=== PATIENT | male | born 1990 | race Caucasian/White ===

== ENCOUNTER 2016-05-23 13:04 | Emergency (ER) | payer OTHER ==
[~2016-05-23] VITALS: Ht 177.8 cm; Wt 146.5 kg
[~2016-05-23 13:04] MED LIST: ALBUTEROL1.25 MG/1 INH/SOL; ALBUTEROL2.5 MG/3 M INH/SOL; CIPRODEX 0.3%-7.5 ML OT; CLEOCIN HCL300 MG PO; FLOVENT HFA10.6 GM INH; GUAIFENESIN-COD10 ML PO; IPRAT-ALBUT 0.5-3 ML NEB; LOMOTIL 0.025 M1 TAB PO; MEDROL4 M2 PO; PERCOCET 325 MG1 TA2 PO; PREDNISONE20 M1 PO; PROAIR HFA8.5 GM INH; TESSALON PERLE100 M1 PO; VIBRAMYCIN100 MG PO; ZITHROMAX500 M2 PO; ZOFRAN ODT4 MG PO
[2016-05-23 14:17] LABS: ABSOLUTE BASOPHIL COUNT 0 /CUMM (0.0-0.2); ABSOLUTE EOSINOPHIL COUNT 0 /CUMM (0.0-0.7); ABSOLUTE GRANULOCYTE CT 6.6 /CUMM (1.4-6.5); ABSOLUTE LYMPH COUNT 0.5 /CUMM (1.2-3.4); BASOPHIL % 0 % (0.0-2.0); EOSINOPHIL % 0.2 % (0-5); GRANULOCYTE % 81.5 % (42.2-75.2); HEMATOCRIT 43.1 % (42-52); MEAN CORPUSCULAR HGB 28.2 PG (27.0-31.0); MEAN CORPUSCULAR HGB CONC 33.8 G/DL (33.0-37.0); MEAN CORPUSCULAR VOLUME 83.3 FL (80.0-94.0); MEAN PLATELET VOLUME 8.1 FL (7.4-10.4); PLATELET COUNT 216 /CUMM (130-400); RBC DISTRIBUTION WIDTH 13.6 % (11.5-14.5); RED BLOOD CELL CT 5.17 /CUMM (4.70-6.10); WHITE BLOOD CELL COUNT 8.1 /CUMM (4.8-10.8)
--- NOTE | 2016-05-23 14:35 | ED GENERAL ADULT ---
History of Present Illness General Chief Complaint: General Adult Stated Complaint: FLU S/S X 1 DAY Source: patient, family Exam Limitations: no limitations Vital Signs & Intake/Output Vital Signs & Intake/Output Vital Signs Date Time Temp Pulse Resp B/P Pulse O2 O2 Flow FiO2 Ox Delivery Rate 05/23 1530 100.5 100 20 127/65 96 Room Air 05/23 1405 97 05/23 1344 95 Room Air 05/23 1311 99.5 116 20 117/68 95 Room Air Allergies Coded Allergies: NO KNOWN ALLERGIES (04/08/14) Reconcile Medications Albuterol Sulfate (Proair Hfa) 8.5 GM HFA.AER.AD 2 PUF INH Q4-6 PRN PRN WHEEZING Albuterol Sulfate 1.25 MG/3 ML VIAL.NEB 1 Vial INH/CITLALI Q4-6 PRN WHEEZING Albuterol Sulfate 0.63 MG/3 ML VIAL.NEB 1 Vial INH/CITLALI 4 TIMES/DAY WHEEZING Albuterol Sulfate (Proair Hfa) 90 MCG HFA.AER.AD 2 PUF INH Q4-6 PRN PRN WHEEZING/ASTHMA Methylprednisolone. (Medrol) 4 MG TAB.DS.PK 1 DP PO AD BRONCHITIS 6 on day 1 then reduce by one tablet daily until gone Robitussin AC (Guaifenesin-Codeine Syrup) 200 MG-20 MG/10 ML LIQUID 10 ML PO TID PRN COUGH Triage Note: PT C/O CHILLS, BODYACHES, VOMITING, FREQUENT URINATION, SOB SINCE LAST NIGHT Triage Nurses Notes Reviewed? yes HPI: 25 year old man with multiple ER evaluations in recent time seen for evaluation of diffuse muscle aches/pains, nausea, vomiting, wheezing, shortness of breath with bloody sputum production, chills, and frequent painful urination. Patient awoke yesterday morning feeling mild diffuse muscle aches and went about his day. He reports by the midafternoon he returned home from the Gym and felt nauseated with multiple episodes of bilious vomiting. He reports persistence of these symptoms throughout the night with episodes of frequent painful urination. Otherwise he denies any headache, fever, chest pain, palpitations, numbness/ tingling. (ASHLEY BARNETT,JOSE ARMANDO) Past History Travel History Traveled to [place] past [place] day No Medical History Any Pertinent Medical History? 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 No (JOSE ARMANDO RAMIREZ MD) Review of Systems Review of Systems Constitutional: Reports: see HPI. (JOSE ARMANDO RAMIREZ MD) Physical Exam Physical Exam General Appearance: well developed/nourished, alert, awake, mild distress, obese Comments: General - well developed, well nourished young obese man in mild distress HEENT - NCAT, PERRL, EOMI, anicteric sclera, dry mucuous membranes CVS - S1, S2 w/o m/g/r Resp - Audible productive cough, mild wheezing in right lung yao, no crackles , no accessory muscle use GI - Soft, nontender, nondistended, bowel sounds intact Neuro - Awake and Alert, CN II - XII grossly intact Ext - normal pulses, no cyanosis/clubbing/edema Core Measures ACS in differential dx? No CVA/TIA Diagnosis: No Severe Sepsis Present: No Septic Shock Present: No (JOSE ARMANDO RAMIREZ MD) Progress Differential Diagnoses I considered the following diagnoses in my evaluation of the patient: acute bronchitits, influenza, pneumonia Plan of Care: Orders Procedure Date/time Status URINALYSIS 05/23 1355 Active COMPREHENSIVE METABOLIC PANEL 05/23 1355 Complete CBC WITHOUT DIFFERENTIAL 05/23 1355 Complete RAPID VIRAL INFLUENZA A 05/23 1318 Complete Laboratory Tests 05/23/16 1407: Anion Gap 12, Estimated GFR > 60, BUN/Creatinine Ratio 15.0, Glucose 96, Calcium 9.4, Total Bilirubin 0.6, AST 37, ALT 50, Alkaline Phosphatase 62, Total Protein 6.8, Albumin 4.4, Globulin 2.4, Albumin/Globulin Ratio 1.8, CBC w Diff NO MAN DIFF REQ, RBC 5.17, MCV 83.3, MCH 28.2, RDW 13.6, MPV 8.1, Gran % 81.5 H, Lymphocytes % 6.3 L, Monocytes % 12.0 H, Eosinophils % 0.2, Basophils % 0 L, Absolute Granulocytes 6.6 H, Absolute Lymphocytes 0.5 L, Absolute Monocytes 1.0 H, Absolute Eosinophils 0, Absolute Basophils 0, PUBS MCHC 33.8 Microbiology 05/23 1337 NASOPHARYN: Influenza Virus A & B Rapid Smear - COMP Initial ED EKG: none Comments: Given patient's history of present illness his symptomology is 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 Vital signs on initial evaluation demonstrated tachycardia, patient is afebrile. Physical examination did demonstrate a moderately uncomfortable young man with a normal cardiac examination, diffuse wheezing with an audible productive cough, and dry mucous membranes. Complete blood count, comprehensive metabolic panel are within normal limits and did not demonstrate leukocytosis. Chest x-ray was suggestive of reactive airway disease or bronchitis without any evidence of pneumonia. Rapid flu was negative. Urinalysis Patient most likely has an acute viral bronchitis given his lack of leukocytosis and lack of a temperature. He is to be discharged to home with an albuterol inhaler, Medrol dose pack, and nebulizer vials with instruction to follow-up with his primary care provider after discharge for further evaluation.. (JOSE ARMANDO RAMIREZ MD) Departure Departure Disposition: HOME OR SELF CARE Condition: Stable Clinical Impression Primary Impression: Acute viral bronchitis Referrals: KIKE BARNETT,VINAY Gutierrez (PCP/Family) Additional Instructions: Take the Medrol Dosepak, albuterol inhaler, and albuterol nebulizing treatments as directed. Follow-up with your primary care provider after discharge. Call 911 or return to the ED should your clinical condition worsen. Departure Forms: Customer Survey General Discharge Information Prescriptions: Current Visit Scripts Methylprednisolone. (Medrol) 1 DP PO AD #1 DP 6 on day 1 then reduce by one tablet daily until gone Albuterol Sulfate 1 Vial INH/CITLALI 4 TIMES/DAY #150 ML Albuterol Sulfate (Proair Hfa) 2 PUF INH Q4-6 PRN PRN WHEEZING/ASTHMA #1 INHAL (JOSE ARMANDO RAMIREZ MD) Resident Co-Sign Statement Statement: ED Attending supervision documentation- [x] I saw and evaluated the patient. I have also reviewed all the pertinent lab results and diagnostic results. I agree with the findings and the plan of care as documented in the Resident's documentation. [] I have reviewed the ED Record and agree with the Resident's documentation. [] Additions or exceptions (if any) to the Resident's note and plan are summarized below: [] (GINA BARNETT,LULU Low) Critical Care Note Critical Care Note Critical Care Time: non-applicable (ASHLEY BARNETT,JOSE ARMANDO)
--- NOTE | 2016-05-23 14:48 | RADIOLOGY REPORT ---
EXAMINATION: XR CHEST CLINICAL INFORMATION: Shortness of breath. Wheezing. Presumptive diagnosis of URI. Evaluate for pneumonia. COMPARISON: Chest x-ray dated 11/07/2015 and 12/18/2011. TECHNIQUE: 2 views of the chest were obtained on 3 films. FINDINGS: The cardiomediastinal silhouette is within normal limits in size. Lungs bilaterally are symmetrically expanded and minimal thickening of the central airways. No focal consolidation, effusion or pneumothorax is seen. Bony structures are unremarkable. IMPRESSION: Findings suggestive of reactive airways disease or bronchitis. No evidence of pneumonia.
[2016-05-23] MEDS ORDERED: ALBUTEROL0.63 MG/1 INH/SOL (15:11)
[2016-05-23] MEDS ORDERED: PROAIR HFA8.5 GM INH (15:11)
[2016-05-23] MEDS ORDERED: MEDROL4 M2 PO (15:11)
[2016-05-23 15:30] VITALS: BP 127/65
[2016-05-23] MEDS ORDERED: GUAIFENESIN-CO118 ML PO (16:12)
== END 2016-05-23 16:18 ==
LOC: ERH 13:04
PROVIDERS: Internal Medicine Interventional Cardiology
DX: J20.8 Acute bronchitis due to other specified organisms (principal); Z72.0 Tobacco use
CPT/HCPCS: 1263; 81001; 87804; 87804-59; 96374; J2405

== ENCOUNTER 2016-06-01 01:43 | Emergency (ER) | payer OTHER ==
[~2016-06-01] VITALS: Ht 177.8 cm; Wt 108.9 kg
[~2016-06-01 01:43] MED LIST changes: +ALBUTEROL0.63 MG/1 INH/SOL; +GUAIFENESIN-CO118 ML PO
--- NOTE | 2016-06-01 01:54 | ED DYSPNEA/ASTHMA COMPLAINT ---
History of Present Illness General Chief Complaint: Upper Respiratory Sx/Fever Stated Complaint: COUGH,DIFF BREATHING Source: patient Exam Limitations: no limitations Vital Signs & Intake/Output Vital Signs & Intake/Output Vital Signs Date Time Temp Pulse Resp B/P Pulse O2 O2 Flow FiO2 Ox Delivery Rate 06/01 0206 95 Room Air 06/01 0205 97.1 103 22 131/77 95 Room Air Allergies Coded Allergies: NO KNOWN ALLERGIES (04/08/14) Reconcile Medications Albuterol Sulfate (Ventolin Hfa) 90 MCG HFA.AER.AD 2 PUF INH Q4-6 PRN PRN wheeze Albuterol Sulfate 1.25 MG/3 ML VIAL.NEB 1 Vial INH/CITLALI Q4-6 PRN WHEEZE Albuterol Sulfate (Proair Hfa) 8.5 GM HFA.AER.AD 2 PUF INH Q4-6 PRN PRN WHEEZING Albuterol Sulfate 1.25 MG/3 ML VIAL.NEB 1 Vial INH/CITLALI Q4-6 PRN WHEEZING Albuterol Sulfate 0.63 MG/3 ML VIAL.NEB 1 Vial INH/CITLALI 4 TIMES/DAY WHEEZING Albuterol Sulfate (Proair Hfa) 90 MCG HFA.AER.AD 2 PUF INH Q4-6 PRN PRN WHEEZING/ASTHMA Amoxicillin/Potassium Clav (Augmentin 875-125 Tablet) 875 MG-125 MG TABLET 1 TAB PO BID bronchitis Guaifenesin/Codeine Phosphate (Guaifenesin-Codeine Syrup) 100 MG-10 MG/5 ML LIQUID 5 ML PO Q6 COUGH Methylprednisolone. (Medrol) 4 MG TAB.DS.PK 1 DP PO AD wheezing 6 on day 1 then reduce by one tablet daily until gone Methylprednisolone. (Medrol) 4 MG TAB.DS.PK 1 DP PO AD BRONCHITIS 6 on day 1 then reduce by one tablet daily until gone Robitussin AC (Guaifenesin-Codeine Syrup) 200 MG-20 MG/10 ML LIQUID 10 ML PO TID PRN COUGH Triage Nurses Notes Reviewed? yes Onset: Gradual Duration: day(s):, waxing and waning Timing: recent history Severity: mild, moderate Activities at Onset: none Prior Episodes/Possible Cause: occasional episodes Modifying Factors: Improves With: rest. Associated Symptoms: cough, wheezing HPI: 25 yo gentleman presents with cough, productive of phlegm, and wheezing for the past 10 days. He notes that he completed a course of steroids, "went through the whole body of nebulizer medicine... and I'm still coughing... Now I have phlegm coming up." He notes no fever, chills, chest pain. He notes that he hasn't smoked cigarettes since getting sick. He is otherwise well. Past History Travel History Traveled to [place] past [place] day No Medical History Any Pertinent Medical History? 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 No Review of Systems Review of Systems Constitutional: Reports: no symptoms. EENTM: Reports: no symptoms. Respiratory: Reports: no symptoms. Cardiovascular: Reports: no symptoms. GI: Reports: no symptoms. Genitourinary: Reports: no symptoms. Musculoskeletal: Reports: no symptoms. Skin: Reports: no symptoms. Neurological/Psychological: Reports: no symptoms. Hematologic/Endocrine: Reports: no symptoms. Immunologic/Allergic: Reports: no symptoms. All Other Systems: Reviewed and Negative Physical Exam Physical Exam General Appearance: well developed/nourished, mild distress Head: atraumatic, normal appearance Eyes: Bilateral: normal appearance. Ears, Nose, Throat: normal pharynx Neck: normal inspection Respiratory: rhonchi, wheezing Cardiovascular: regular rate/rhythm Gastrointestinal: normal bowel sounds, soft, non-tender, no organomegaly Extremities: normal inspection Neurologic/Psych: no motor/sensory deficits, awake, alert, oriented x 3 Skin: intact, normal color, warm/dry Core Measures ACS in differential dx? No Severe Sepsis Present: No Septic Shock Present: No Progress Differential Diagnosis: asthma, bronchitis Plan of Care: scott davis Initial ED EKG: none Departure Departure Disposition: HOME OR SELF CARE Condition: Stable Clinical Impression Primary Impression: Bronchitis Referrals: UNKNOWN (PCP/Family) Departure Forms: Customer Survey General Discharge Information Prescriptions: Current Visit Scripts Methylprednisolone. (Medrol) 1 DP PO AD #1 DP 6 on day 1 then reduce by one tablet daily until gone Albuterol Sulfate (Ventolin Hfa) 2 PUF INH Q4-6 PRN PRN wheeze #1 INHAL Albuterol Sulfate 1 Vial INH/CITLALI Q4-6 PRN WHEEZE #1 BOX Amoxicillin/Potassium Clav (Augmentin 875-125 Tablet) 1 TAB PO BID #20 TAB Comments pt feels better after duo neb... abx/steroids/albuterol prescribed. close follow up encouraged. Critical Care Note Critical Care Note Critical Care Time: non-applicable
[2016-06-01 02:05] VITALS: BP 131/77
[2016-06-01] MEDS ORDERED: MEDROL4 M2 PO (02:19)
[2016-06-01] MEDS ORDERED: AUGMENTIN 875-1 EACH PO (02:19)
[2016-06-01] MEDS ORDERED: ALBUTEROL1.25 MG/1 INH/SOL (02:19)
[2016-06-01] MEDS ORDERED: VENTOLIN HFA18 GM INH (02:19)
== END 2016-06-01 02:59 ==
LOC: ERH 01:43
DX: J40 Bronchitis, not specified as acute or chronic (principal); Z72.0 Tobacco use
CPT/HCPCS: 1263; J1100; J3490

== ENCOUNTER 2016-06-22 12:34 | Emergency (ER) | payer OTHER ==
[~2016-06-22] VITALS: Ht 177.8 cm; Wt 146.5 kg
[~2016-06-22 12:34] MED LIST changes: +AUGMENTIN 875-1 EACH PO; +VENTOLIN HFA18 GM INH
[2016-06-22 12:46] VITALS: BP 136/77
--- NOTE | 2016-06-22 13:18 | ED INFLUENZA/URI COMPLAINT ---
History of Present Illness General Chief Complaint: General Adult Stated Complaint: "I THINK I HAVE THE FLU" Source: patient, old records Exam Limitations: no limitations Vital Signs & Intake/Output Vital Signs & Intake/Output Vital Signs Date Time Temp Pulse Resp B/P Pulse O2 O2 Flow FiO2 Ox Delivery Rate 06/22 1246 99.4 111 18 136/77 96 Room Air Allergies Coded Allergies: NO KNOWN ALLERGIES (04/08/14) Reconcile Medications Albuterol Sulfate (Ventolin Hfa) 90 MCG HFA.AER.AD 2 PUF INH Q4-6 PRN PRN wheeze Albuterol Sulfate 1.25 MG/3 ML VIAL.NEB 1 Vial INH/CITLALI Q4-6 PRN WHEEZE Albuterol Sulfate (Proair Hfa) 8.5 GM HFA.AER.AD 2 PUF INH Q4-6 PRN PRN WHEEZING Albuterol Sulfate 2.5 MG/3 ML (0.083 %) VIAL.NEB 1 Vial INH/CITLALI Q4P PRN wheezing Albuterol Sulfate 1.25 MG/3 ML VIAL.NEB 1 Vial INH/CITLALI Q4-6 PRN WHEEZING Albuterol Sulfate 0.63 MG/3 ML VIAL.NEB 1 Vial INH/CITLALI 4 TIMES/DAY WHEEZING Albuterol Sulfate (Proair Hfa) 90 MCG HFA.AER.AD 2 PUF INH Q4-6 PRN PRN WHEEZING/ASTHMA Amoxicillin/Potassium Clav (Augmentin 875-125 Tablet) 875 MG-125 MG TABLET 1 TAB PO BID bronchitis Amoxicillin/Potassium Clav (Augmentin 875-125 Tablet) 875 MG-125 MG TABLET 1 TAB PO BID strep Guaifenesin/Codeine Phosphate (Guaifenesin-Codeine Syrup) 100 MG-10 MG/5 ML LIQUID 5 ML PO Q6 COUGH Methylprednisolone. (Medrol) 4 MG TAB.DS.PK 1 DP PO AD wheezing 6 on day 1 then reduce by one tablet daily until gone Methylprednisolone. (Medrol) 4 MG TAB.DS.PK 1 DP PO AD strep 6 on day 1 then reduce by one tablet daily until gone Methylprednisolone. (Medrol) 4 MG TAB.DS.PK 1 DP PO AD BRONCHITIS 6 on day 1 then reduce by one tablet daily until gone Robitussin AC (Guaifenesin-Codeine Syrup) 200 MG-20 MG/10 ML LIQUID 10 ML PO TID PRN COUGH Triage Note: 25 Y/O MALE C/O SORE THROAT AND BODY ACHES SINCE LAST NIGHT. TOOK IBUPROPHEN AROUND 0400 WITH NO RELIEF. QUICK STREP AND FLU SWABS SENT TO LAB. TEMP 99.4 Triage Nurses Notes Reviewed? yes Onset: Abrupt Duration: day(s): (1), constant Timing: recent history Severity: moderate Severity Numbers: 7 Prior Episodes/Possible Cause: occassional episodes No Modifying Factors: none Associated Symptoms: muscle aches, CHILLS, EAR PAIN HPI: 25-year-old male presents emergency room complaining of sore throat general is body aches chills and bilateral ear pain since last night. He took Motrin at 4: 00 this morning with no improvement. He denies any sick contacts chest pain shortness of breath. No abdominal pain nausea vomiting or diarrhea. No recent travel. There are no modifying factors or associated symptoms pain is aching and throbbing worse with swallowing. No recent dental work. (CHANDANA ROSSI) Past History Travel History Traveled to [place] past [place] day No Medical History Any Pertinent Medical History? 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 No (CHANDANA ROSSI) Review of Systems Review of Systems Constitutional: Reports: see HPI. All Other Systems: Reviewed and Negative Comments Review of systems: See HPI, All other systems negative. Constitutional, chills no fever, no malaise HEENT: No visual changes sore throat no congestion Cardiovascular: No chest pain , no palpitation Skin, no jaundice no rashes, no change in skin Respiratory: No dyspnea no cough no sputum GI: No nausea no vomiting, no diarrhea : No dysuria Muscle skeletal: No joint pain, no back pain, no neck pain, Neurologic: No numbness no headache Psych: No stress Heme/endocrine: No bruising no bleeding Immunology: No lymphadenopathy, (CHANDANA ROSSI) Physical Exam Physical Exam General Appearance: well developed/nourished, no apparent distress, alert, awake Ears, Nose, Throat: hearing grossly normal, Tympanic normal Comments: Well-developed well-nourished patient in no apparent distress. Head/Face: Atraumatic, no maxillary/frontal sinus tenderness, no facial swelling Eyes: PERRL, EOMI, no conjunctival injection. No nystagmus Ear:External auditory canal and Tympanic membranes clear, no erythema, no FB. Nose: atraumatic.Normal inspection: No bleeding, no septal hematoma Throat: Moist mucous membranes.pharynx is erythematous, tonsillar exudate no trismus no uvula displacement no stridor/drooling or assymetry. No swelling or edema. Neck: Supple, ANTERIOR lymphadenopathy, FROM Back: FROM, Nontender Cardiovascular: Regular rate and rhythms no murmurs rubs or gallops, Respiratory: No respiratory distress. Patient speaking in full complete sentences. Breath sounds clear to auscultation bilaterally: NO W/R/R Extremities: full range of motion Neuro: Alert and oriented x3 Skin: Warm & dry;No appreciable rash on exposed skin Psych: Mood affect normal, normal memory normal judgment. Core Measures Severe Sepsis Present: No Septic Shock Present: No (CHANDANA ROSSI) Progress Differential Diagnosis: influenza, otitis, pneumonia, pharyngitis, sinusitis, mono Plan of Care: Orders Procedure Date/time Status THROAT CULTURE W/QUICK STREP 06/22 1245 Complete RAPID VIRAL INFLUENZA A 06/22 1243 Complete Microbiology 06/22 1247 NASOPHARYN: Influenza Virus A & B Rapid Smear - COMP Discussed with patient his throat swab results need for supportive care Tylenol Motrin Augmentin Medrol Dosepak patient is requesting refill of his albuterol nebulizer. I answered all his questions he feels comfortable with plan cleared for discharge (CHANDANA ROSSI) Initial ED EKG: none (CHANDANA ROSSI) Departure Departure Time of Disposition: 1322 Disposition: HOME OR SELF CARE Condition: Stable Clinical Impression Primary Impression: Strep pharyngitis Referrals: UNKNOWN (PCP/Family) Additional Instructions: augmentin, medrol dose jeevan as directed. albuterol nebulizer as needed. tylenol or motrin every 4-6 hours asneeded. drink plenty of fluids. follow up with your pmd this week, return with any concerns Departure Forms: Customer Survey General Discharge Information Prescriptions: Current Visit Scripts Amoxicillin/Potassium Clav (Augmentin 875-125 Tablet) 1 TAB PO BID #20 TAB Methylprednisolone. (Medrol) 1 DP PO AD #1 DP 6 on day 1 then reduce by one tablet daily until gone Albuterol Sulfate 1 Vial INH/CITLALI Q4P PRN wheezing #50 Vial (CHANDANA ROSSI) PA/AIRPORT ELECTRICIAN Co-Sign Statement Statement: ED Attending supervision documentation- [] I saw and evaluated the patient. I have also reviewed all the pertinent lab results and diagnostic results. I agree with the findings and the plan of care as documented in the PA's/AIRPORT ELECTRICIAN's documentation. [X] I have reviewed the ED Record and agree with the PA's/AIRPORT ELECTRICIAN's documentation. [] Additions or exceptions (if any) to the PAs/AIRPORT ELECTRICIAN's note and plan are summarized below: [] (SERGIO BARNETT,RAINA Harvey)
[2016-06-22] MEDS ORDERED: ALBUTEROL2.5 MG/3 M INH/SOL ×2 (13:24→15:51)
[2016-06-22] MEDS ORDERED: AUGMENTIN 875-1 EACH PO ×2 (13:24→15:51)
[2016-06-22] MEDS ORDERED: MEDROL4 M2 PO ×2 (13:24→15:51)
== END 2016-06-22 13:49 ==
LOC: ERH 12:34
DX: J02.0 Streptococcal pharyngitis (principal); F17.210 Nicotine dependence, cigarettes, uncomplicated
CPT/HCPCS: 87804; 87804-59

== ENCOUNTER 2016-08-29 10:42 | Emergency (ER) | payer OTHER ==
[~2016-08-29] VITALS: Ht 180.3 cm; Wt 149.7 kg
--- NOTE | 2016-08-29 11:21 | ED DYSPNEA/ASTHMA COMPLAINT ---
History of Present Illness General Chief Complaint: Wheezing/Asthma Stated Complaint: COUGH ASTHMA Source: patient Exam Limitations: no limitations Vital Signs & Intake/Output Vital Signs & Intake/Output Vital Signs Date Time Temp Pulse Resp B/P B/P Pulse O2 O2 Flow FiO2 Mean Ox Delivery Rate 08/29 1210 97.2 91 18 138/84 95 Room Air 08/29 1151 95 08/29 1133 95 08/29 1129 99 Room Air Room Air 08/29 1048 96.3 104 18 137/78 97 Room Air Room Air Allergies Coded Allergies: NO KNOWN ALLERGIES (04/08/14) Reconcile Medications Albuterol Sulfate (Proventil Hfa) 90 MCG HFA.AER.AD 2 PUF INH Q4 cough Albuterol Sulfate 2.5 MG/3 ML (0.083 %) VIAL.NEB 1 Vial INH/CITLALI Q4P PRN sob Albuterol Sulfate (Ventolin Hfa) 90 MCG HFA.AER.AD 2 PUF INH Q4-6 PRN PRN wheeze Albuterol Sulfate 1.25 MG/3 ML VIAL.NEB 1 Vial INH/CITLALI Q4-6 PRN WHEEZE Albuterol Sulfate (Proair Hfa) 8.5 GM HFA.AER.AD 2 PUF INH Q4-6 PRN PRN WHEEZING Albuterol Sulfate 2.5 MG/3 ML (0.083 %) VIAL.NEB 1 Vial INH/CITLALI Q4P PRN wheezing Albuterol Sulfate 2.5 MG/3 ML (0.083 %) VIAL.NEB 1 Vial INH/CITLALI Q4P PRN WHEEZING Albuterol Sulfate 1.25 MG/3 ML VIAL.NEB 1 Vial INH/CITLALI Q4-6 PRN WHEEZING Albuterol Sulfate 0.63 MG/3 ML VIAL.NEB 1 Vial INH/CITLALI 4 TIMES/DAY WHEEZING Albuterol Sulfate (Proair Hfa) 90 MCG HFA.AER.AD 2 PUF INH Q4-6 PRN PRN WHEEZING/ASTHMA Amoxicillin/Potassium Clav (Augmentin 875-125 Tablet) 875 MG-125 MG TABLET 1 TAB PO BID bronchitis Amoxicillin/Potassium Clav (Augmentin 875-125 Tablet) 875 MG-125 MG TABLET 1 TAB PO BID strep Amoxicillin/Potassium Clav (Augmentin 875-125 Tablet) 875 MG-125 MG TABLET 1 TAB PO BID STREP THROAT Doxycycline Hyclate 100 MG TABLET 1 TAB PO BID sob Fluticasone-Salmeterol (Advair 100-50 Diskus) 100 MCG-50 MCG/DOSE BLST.W.DEV 1 PUF INH BID bronchitis/asthma Guaifenesin/Codeine Phosphate (Guaifenesin-Codeine Syrup) 100 MG-10 MG/5 ML LIQUID 5 ML PO Q6 COUGH Methylprednisolone. (Medrol) 4 MG TAB.DS.PK 1 DP PO AD wheezing 6 on day 1 then reduce by one tablet daily until gone Methylprednisolone. (Medrol) 4 MG TAB.DS.PK 1 DP PO AD strep 6 on day 1 then reduce by one tablet daily until gone Methylprednisolone. (Medrol) 4 MG TAB.DS.PK 1 DP PO AD STREP THROAT 6 on day 1 then reduce by one tablet daily until gone Methylprednisolone. (Medrol) 4 MG TAB.DS.PK 1 DP PO AD BRONCHITIS 6 on day 1 then reduce by one tablet daily until gone Prednisone 10 MG TABLET 1 TAB PO AD asthm 6 tabs days 1-3 4 tabs days 4-6 2 tasb days 7-9 1 tab days 10-12 Robitussin AC (Guaifenesin-Codeine Syrup) 200 MG-20 MG/10 ML LIQUID 10 ML PO TID PRN COUGH Triage Note: TRIAGE: 25 Y/O MALE PRESENTS C/O DIFFICULTY SLEEPING X DAYS. REPORTS DIFFICULTY BREATHING X DAYS PLUS +SPUTUM PRODUCTION WITH PRODUCTIVE YET BARKING COUGH. ROOM AIR SPO2 97%. RESP RATE 18. Triage Nurses Notes Reviewed? yes Onset: Abrupt Duration: day(s): (few), constant, getting worse Timing: recent history Severity: moderate, severe HPI: 25-year-old male with a history of asthma comes into emergency room for further evaluation of coughing with mucus production and shortness of breath and wheezing that has been going on for past few days. Patient is an every day smoker. Patient just as a rescue inhaler which he ran out of. Patient does not currently have a primary care doctor. He used to see Dr. Joseph. Denies any chest pain. Chronically has upper respiratory congestion he reports. Denies any fever or vomiting. Past History Travel History Traveled to [place] past 21 day No Medical History Any Pertinent Medical History? 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 No Review of Systems Review of Systems Constitutional: Reports: no symptoms. EENTM: Reports: see HPI. Respiratory: Reports: see HPI. Cardiovascular: Reports: no symptoms. GI: Reports: no symptoms. Genitourinary: Reports: no symptoms. Musculoskeletal: Reports: no symptoms. Skin: Reports: no symptoms. Neurological/Psychological: Reports: no symptoms. Hematologic/Endocrine: Reports: no symptoms. Immunologic/Allergic: Reports: no symptoms. All Other Systems: Reviewed and Negative Physical Exam Physical Exam General Appearance: well developed/nourished, no apparent distress, alert Head: atraumatic, normal appearance Eyes: Bilateral: normal appearance, EOMI. Ears, Nose, Throat: normal pharynx, normal ENT inspection Neck: normal inspection Respiratory: decreased breath sounds, rhonchi, wheezing Cardiovascular: regular rate/rhythm Extremities: normal inspection Neurologic/Psych: awake, alert, oriented x 3, normal gait, normal mood/affect Skin: intact, normal color Core Measures ACS in differential dx? No Severe Sepsis Present: No Septic Shock Present: No All Positive = PERC Ruled Out: Negative: age < 50 years, heart rate < 100 bpm, O2 sat > 94%, no hemoptysis, no hormone use, no prior DVT or PE, no unilateral leg swellin, no surgery/trauma w/ in 4w. [place] Criteria Score: 0 Progress Differential Diagnosis: asthma, AMI, bronchitis, costochondritis, CHF, COPD, musculoskeletal pain, pericarditis, pulmonary embolism, pneumonia, pneumothorax, rib fracture, unstable angina Plan of Care: Current Medications Sig/Alicja Start time Last Medication Dose Stop Time Status Admin Albuterol Sulfate 3 ML ONCE ONE 08/29 1130 UNVr (Proventil) 08/29 113 Ipratropium [place] 2.5 ML ONCE ONE 08/29 1130 UNVr (Atrovent) 08/29 1131 Prednisone 60 MG ONCE ONE 08/29 1130 UNVr 08/29 113 Initial ED EKG: none Comments: 08/29/2016 12:36:45 PM Patient clinically looks well. Patient is nontoxic-appearing. Patient is in no apparent distress. Symptoms are most consistent with bronchitis/asthma. No suspicion for pulmonary embolism at this time. His repeat heart rate is below 100. Patient feels significantly better after nebulizer treatment. Referred to transportation inspector/primary care doctor. At this time I do not feel any further evaluation is needed. Patient declined any further evaluation. He feels ready to go home. Patient was counseled on quitting smoking. Departure Departure Disposition: HOME OR SELF CARE Condition: Stable Clinical Impression Primary Impression: Bronchitis Secondary Impressions: Asthma Referrals: EULALIA BARNETT,DAYANA Ni PATIENT HAS NO PRIMARY CARE DR (PCP/Family) Additional Instructions: Take doxycycline, prednisone, albuterol, Advair as prescribed. Follow-up with primary care Dr. provided. Return if any concerns worsening symptoms. Please go over all results of today's visit with your primary care doctor. Contact your primary care doctor to let them know you were here in the emergency room. There may be nonspecific findings which may not be related to your visit today here in the emergency room but may require further evaluation and chronic monitoring by your primary care doctor. If you had a laceration today the chance of foreign body always remains. You should follow-up with your primary care doctor for recheck in 3-5 days for a wound check. If you had an x-ray done there is a chance that a fracture could have been missed on initial read and you should follow-up with your primary care doctor for repeat x-rays if symptoms persist. If your blood pressure was elevated here in the emergency room please have rechecked by her primary care doctor within the next 48 hours by your primary care doctor. If you were prescribed a narcotic here in the emergency room or any type of controlled substances you're not allowed to drive while taking this medication or operate any type of heavy machinery. Narcotics can make you feel lightheaded dizziness nausea and can cause constipation. You may need to chicken picker a stool softener. Thank you for choosing emergency room. Please return to the emergency room immediately if you have any other concerns worsening of symptoms. Departure Forms: Customer Survey General Discharge Information Prescriptions: Current Visit Scripts Albuterol Sulfate (Proventil Hfa) 2 PUF INH Q4 #1 INHAL Ref 1 Albuterol Sulfate 1 Vial INH/CITLALI Q4P PRN sob #50 Vial Ref 1 Doxycycline Hyclate 1 TAB PO BID #20 TAB Fluticasone-Salmeterol (Advair 100-50 Diskus) 1 PUF INH BID #1 INHAL Ref 1 Prednisone 1 TAB PO AD #39 TAB 6 tabs days 1-3 4 tabs days 4-6 2 tasb days 7-9 1 tab days 10-12 Critical Care Note Critical Care Note Critical Care Time: non-applicable
[2016-08-29] MEDS ORDERED: ADVAIR 100-501 EACH INH (12:04)
[2016-08-29] MEDS ORDERED: DOXYCYCLINE HY100 M4 PO (12:04)
[2016-08-29] MEDS ORDERED: ALBUTEROL2.5 MG/3 M INH/SOL (12:04)
[2016-08-29] MEDS ORDERED: PROVENTIL HFA6.7 GM INH (12:04)
[2016-08-29 12:10] VITALS: BP 138/84
[2016-08-29] MEDS ORDERED: PREDNISONE10 M2 PO (12:39)
== END 2016-08-29 12:13 ==
LOC: ERH 10:42
DX: J45.909 Unspecified asthma, uncomplicated (principal); Z72.0 Tobacco use
CPT/HCPCS: 1263